=== PATIENT | male | born 1945 | race Caucasian/White ===

== ENCOUNTER 2017-03-18 08:10 | Inpatient (IN) ==
[2017-03-18 09:06] LABS: URINE MICRO REVIEW NEEDED? NO; URINE SOURCE CATH
[2017-03-18 09:13] LABS: BILIRUBIN URINE NEGATIVE (NEGATIVE); BLOOD URINE MODERATE (NEGATIVE); COLOR YELLOW; GLUCOSE URINE NEGATIVE (NEGATIVE); LEUKOCYTES URINE LARGE (NEGATIVE); NITRITE URINE NEGATIVE (NEGATIVE); PROTEIN URINE 70 mg/dL (NEGATIVE); TURBIDITY URINE HAZY (CLEAR); UR EPITHELIAL CELLS <10 /HPF (<10); URINE BACTERIA 4+ /HPF; URINE CULTURE NEEDED? YES; URINE WBC TNTC /HPF (<10); UROBILINOGEN URINE NORMAL (NORMAL)
[2017-03-18 09:19] LABS: BASO% 0.1 % (0.0-0.8); EOS# 0.09 X1000 (0.0-0.7); HEMATOCRIT 43.9 % (42.0-52.0); HEMOGLOBIN 15.3 g/dL (14.0-18.0); IMM GRAN# 0.02 X1000 (0.0-0.04); IMM GRAN% 0.2 % (0.0-0.5); LYMPH# 0.12 X1000 (1.2-3.4); LYMPH% 1.4 % (20.5-51.1); MANUAL DIFF NEEDED? NO; MCHC 34.9 g/dL (33-37); MCV 83.1 FL (81-99); MONO# 0.45 X1000 (0.11-0.59); MONO% 5.1 % (1.7-9.3); MPV 12.1 FL (7.4-10.4); NEUT% 92.2 % (42.2-75.2); PLT 120 X1000 (130-400); RBC 5.28 XMIL (4.7-6.1)
[2017-03-18 09:40] LABS: ALBUMIN 3.5 g/dL (3.5-5.0); CALCIUM 8.8 mg/dL (8.8-10.2); TOTAL BILIRUBIN 1.56 mg/dL (0.20-1.00); TOTAL PROTEIN 6.9 g/dL (6.3-8.3)
[2017-03-18 09:46] LABS: POTASSIUM 4.3 mmol/L (3.5-5.1)
[2017-03-18] MEDS ORDERED: ROCEPHIN 1 GM/NS 1 GM/50 ML IVPB IV ONE (10:34)
--- NOTE | 2017-03-18 11:09 | Diag Imaging Result Doc PS360 ---
CHEST-PORTABLE - 03/18/2017 INDICATION: SEPSIS TECHNIQUE: COMPARISON: 09/25/2016 FINDINGS: There is poor visualization of the left hemidiaphragm, possibly due to some left lower lobe atelectasis or infiltrate. The right lung appears grossly clear. Heart size is normal. No pneumothorax or pleural effusion. IMPRESSION: Probable left lower lobe infiltrate or atelectasis. Electronically signed by Shahid Allan 03/18/2017 11:07 AM
--- NOTE | 2017-03-18 12:32 | PROVIDER DOCUMENTATION ---
This chart was entered by Leland Driver Scribe, acting as scribe for Levi Mckeon MD. HPI-Fever - General Chief Complaint: Fever Stated Complaint: n/v Time Seen by Provider: 03/18/17 09:10 Source: patient, family Allergies/Adverse Reactions: Patient Allergies Allergy/AdvReac Type Severity Reaction Status Date / Time Penicillins Allergy Severe ANAPHYLAXIS Verified 03/18/17 08:50 Sulfa (Sulfonamide Allergy Severe ANAPHYLAXIS Verified 03/18/17 08:50 Antibiotics) [Sulfa(Sulfonamide Antibiotics)] codeine Allergy NAUSEA/VOMI Verified 03/18/17 08:50 TING Home Medications: Home Medication List Medication Instructions Recorded Confirmed Last Taken Type Allopurinol [Zyloprim] 100 mg PO QHS 09/11/12 03/18/17 03/17/17 History Aspirin 81 mg PO DAILY 09/11/12 03/18/17 03/17/17 History Ca Cmb No.1/Vit D3/B-6/FA/B12 1 each PO DAILY 09/11/12 03/18/17 03/17/17 History [Vitamin D3 1,000 Unit Tablet] Fexofenadine [Lian] 180 mg PO DAILY 09/11/12 03/18/17 03/17/17 History PRAVAstatin [Pravachol] 40 mg PO DAILY 09/11/12 03/18/17 03/17/17 History Bumetanide [Bumex] 1 mg PO DAILY 11/08/13 03/18/17 03/17/17 History Cyanocobalamin/FA/Pyridoxine 1 each PO QHS 11/08/13 03/18/17 03/17/17 History [Folbee Tablet] Ranitidine [Zantac] 150 mg PO BID 11/08/13 03/18/17 03/17/17 History Sennosides/Docusate Sodium 1 each PO QHS 11/08/13 03/18/17 03/17/17 History [Pericolace] Atenolol 25 mg PO BID #60 tablet 01/11/14 03/18/17 03/17/17 Rx Sodium Chloride 0.5 gm PO BID 10/16/14 03/18/17 03/17/17 History Clopidogrel Bisulfate [Plavix] 75 mg PO DAILY 06/11/0303/18/17 03/17/17 History Nitrofurantoin Monohyd/M-Cryst 100 mg PO BID 03/18/17 03/18/17 03/17/17 History [Macrobid 100 mg Capsule] - History of Present Illness-Fever Nature of Presenting Problem: patient is a 71 y/o M that presents to the ER with a 2 day history of fever/ chills, weakness. reports having a syncopal episode yesterday. He is on antibiotics for UTI. patient has suprapubic cath. History of CVA in past. Fever Severity/Quality: reports: greater than 100.5 F Onset/Duration: reports: gradual, 2 days ago Timing: reports: still present, constant Severity: reports: moderate Context: reports: indwelling butt (suprapubic cath) Recent Illness?: reports: none Cognitive Baseline: alert, oriented x3 Modifying Factors: improves with: nothing Associated Symptoms: reports: cough, fever/chills, genitourinary problems, syncope. denies: chest pain, diarrhea, EENT symptoms, nausea, shortness of breath, swelling/mass in abdomen, vomiting Similar Symptoms Previously?: Yes Recently seen or treated by another doctor?: Yes - Glascow Coma Score Best Eye Response (Salazar): (4) open spontaneously Best Verbal Response (Salazar): (4) confused conversation Best Motor Response (Salazar): (6) obeys commands Salazar Total: 14 Review of Systems - Adult - REVIEW OF SYSTEMS - ADULT ROS:: ROS per family Constitutional: reports: chills, fever Eyes: denies: decreased vision, blurred vision, double vision Ears, Nose, Mouth & Throat: reports: no symptoms reported Cardiovascular: denies: chest pain, palpitations, syncope Respiratory: reports: cough. denies: shortness of breath, wheezing Gastrointestinal: reports: abdominal pain. denies: diarrhea, nausea, vomiting Genitourinary: denies: dysuria, frequency, hesitency Musculoskeletal: reports: no symptoms reported Integumentary: reports: no symptoms reported Neurological: reports: syncope. denies: dizziness/vertigo, headache/migraines Psychiatric: reports: no symptoms reported Endocrine: reports: no symptoms reported Hematologic/Lymphatic: reports: no symptoms reported Allergic/Immunologic: reports: no symptoms reported All Other Systems: Reviewed and Negative Past History - Adult - PAST MEDICAL HISTORY-ADULT Review of Records: reports: Old Records Reviewed, Nursing Assessment Review, Medications Reviewed Cardiovascular: reports: CAD, HTN Respiratory: reports: COPD Gastrointestinal: reports: GERD Genitourinary: reports: kidney disease (chronic renal( stage Iv)), retention, stenosis/obstruction Musculoskeletal: reports: chronic pain Neurological: reports: CVA, stroke deficits (left sided), TIA Psychiatric: reports: anxiety Endocrine/Immune: reports: anemia - PRIOR SURGERIES/PROCEDURES Surgical/Procedure History: reports: indwelling device (suprapubic cath), other (TURP) - PRIOR HOSPITALIZATIONS Prior Hospitalizations: reports: for similar symptoms - IMMUNIZATION STATUS Childhood Immunizations: See Nurse Assessment Flu Vaccine: See Nurse Assessment - FAMILY HISTORY Family History: CAD over 55 yo - SOCIAL HISTORY Smoking: quit greater than 1 year, cigarettes Living Situation: family Physical Exam-General - PHYSICAL EXAM-ADULT Initial Vital Signs Reviewed: Yes - CONSTITUTIONAL General Appearance: no apparent distress, lethargic - EYES Eyes: PERRL/EOMI, pink conjunctivae - HEAD, EARS, NOSE, MOUTH & THROAT HENMT: normocephalic/atraumatic, moist mucous membranes, normal ENT inspection - NECK Neck: full range of motion, normal inspection - RESPIRATORY Respiratory: lungs clear, normal breath sounds, no respiratory distress, no accessory muscle use - CARDIOVASCULAR Cardiovascular: no gallop, no murmur, tachycardia - GASTROINTESTINAL (ABDOMEN) Abdominal Exam: normal bowel sounds, soft, no organomegaly, no pulsatile mass, tenderness (suprapubic), other (suprapubic cath) - MUSCULOSKELETAL Back Exam: no CVA tenderness, no vertebral tenderness Extremity: normal inspection, no pedal edema, normal capillary refill - SKIN Integumentary: normal turgor, warm/dry - NEUROLOGIC Neurologic: motor weakness (left sided previous cva). negative: aphasia, EOM palsy, facial droop - PSYCHIATRIC Psych/Mental Status: oriented x 3. negative: anxious, disheveled Progress - PLAN OF CARE/RESULTS Progress/Plan/Lab Results: Vital Signs - 8 hr 03/18/17 08:41 03/18/17 09:55 03/18/17 11:00 Temperature 100.7 F H Pulse Rate 103 H 88 88 Respiratory Rate 18 17 29 H Blood Pressure 129/73 120/57 121/63 O2 Sat by Pulse Oximetry 94 L 93 L 94 L Laboratory Results - last 24 hr 03/18/17 03/18/17 03/18/17 08:28 08:28 08:28 WBC 8.84 RBC 5.28 Hgb 15.3 Hct 43.9 MCV 83.1 MCH 29.0 MCHC 34.9 RDW Std Deviation 12.9 Plt Count 120 L MPV 12.1 H Immature Gran % (Auto) 0.2 Neut % (Auto) 92.2 H Lymph % (Auto) 1.4 L [place] % (Auto) 5.1 Eos % (Auto) 1.0 Baso % (Auto) 0.1 Immature Gran # (Auto) 0.02 Neut # (Auto) 8.15 H Lymph # (Auto) 0.12 L [place] # (Auto) 0.45 Eos # (Auto) 0.09 Baso # (Auto) 0.01 Sodium 124 L Potassium 4.3 Chloride 85 L Carbon Dioxide 23 L Anion Gap 16 BUN 25 H Creatinine 1.8 H Estimated GFR/1.73 m2 37 BUN/Creatinine Ratio 14 Glucose 96 Calculated Osmolality 254 Calcium 8.8 Total Bilirubin 1.56 H AST 38 H ALT 27 Alkaline Phosphatase 73 Total Protein 6.9 Albumin 3.5 Globulin 3.4 Albumin/Globulin Ratio 1.0 Plasma Lactate 1.4 Urine Source Urine Color Urine Turbidity Urine pH Ur Specific [place] Urine Protein Ur Glucose (Stick) Ur Ketones (Stick) Urine Blood Urine Nitrite Urine Bilirubin Urobilinogen Dipstick Urine Leukocytes Urine WBC (Auto) Urine RBC (Auto) U Epithel Cells (Auto) Urine Bacteria (Auto) 03/18/17 08:28 WBC RBC Hgb Hct MCV MCH MCHC RDW Std Deviation Plt Count MPV Immature Gran % (Auto) Neut % (Auto) Lymph % (Auto) [place] % (Auto) Eos % (Auto) Baso % (Auto) Immature Gran # (Auto) Neut # (Auto) Lymph # (Auto) [place] # (Auto) Eos # (Auto) Baso # (Auto) Sodium Potassium Chloride Carbon Dioxide Anion Gap BUN Creatinine Estimated GFR/1.73 m2 BUN/Creatinine Ratio Glucose Calculated Osmolality Calcium Total Bilirubin AST ALT Alkaline Phosphatase Total Protein Albumin Globulin Albumin/Globulin Ratio Plasma Lactate Urine Source CATH Urine Color YELLOW Urine Turbidity HAZY Urine pH 7.0 Ur Specific [place] 1.010 Urine Protein 70 A Ur Glucose (Stick) NEGATIVE Ur Ketones (Stick) NEGATIVE Urine Blood MODERATE A Urine Nitrite NEGATIVE Urine Bilirubin NEGATIVE Urobilinogen Dipstick NORMAL Urine Leukocytes LARGE A Urine WBC (Auto) TNTC A Urine RBC (Auto) 10-20 A U Epithel Cells (Auto) <10 Urine Bacteria (Auto) 4+ Orders Category Date Time Status Renal Diet Diet 03/18/17 11:31 Active CHEST-PORTABLE [RAD] Stat Exams 03/18/17 10:36 Completed CBC WITH ELECTRONIC DIFF [HEME] Stat Lab 03/18/17 08:28 Completed COMPREHENSIVE METABOLIC PANEL [CHEM] Stat Lab 03/18/17 08:28 Completed LACTATE, PLASMA [CHEM] Stat Lab 03/18/17 08:28 Completed URINALYSIS W/POSS RFLX CULT [URINALYSIS] Stat Lab 03/18/17 08:28 Completed URINE CULTURE [RM] Routine Lab 03/18/17 09:22 Received CefTRIAXONE 1 GM/NS [Rocephin 1 gm/Ns] Med 03/18/17 10:34 Discontinued 1 gm in 50 ml IV NOW Result Diagrams: 03/18/17 08:28 03/18/17 08:28 - XRAY 1 XRAY Study: Chest Impression: Abnormal XRAY Interpretation: probable LLL infiltrate or atelectasis - CONSULTS/PCP/HOSPITALIST Notification #1 *Consult/PCP/Hospitalist*: [place] with hospitalist Time Discussed: 12:05 Reason/Comments: accepted Consult Disposition: Will see in ED, Admit Departure - Departure Date of Disposition Decision: 03/18/17 Time of Disposition Decision: 12:05 DIAGNOSIS: Failure of outpatient treatment Fever Qualifiers: Fever type: unspecified Qualified Code(s): R50.9 - Fever, unspecified UTI (urinary tract infection) Qualifiers: Urinary tract infection type: acute cystitis Hematuria presence: with hematuria Qualified Code(s): N30.01 - Acute cystitis with hematuria Disposition: ADMITTED INPATIENT 09 Certified Medical Emergency: Emergent Condition: Stable Referrals and Follow-Ups: None,PCP [Primary Care Provider] - - Critical Care Note This patient required my direct & personal management of CC.: No This chart was documented by the indicated scribe, (Leland Driver, Scribe) and accurately reflects the services I performed and decisions made by me, Levi Mckeon MD, as attested by the provider's signature.
[2017-03-18 13:09] LABS: UR CREAT RANDOM 63.2 mg/dL (14-26)
--- NOTE | 2017-03-18 13:47 | Diag Imaging Result Doc PS360 ---
HEAD W/O CONTRAST - 03/18/2017 INDICATION: syncope/fall with head injury TECHNIQUE: A CT dose reduction protocol was used. COMPARISON: 09/25/2016 FINDINGS: There is a stable large area of encephalomalacia at the right frontal-parietal lobes with ex vacuo dilation of the lateral ventricle. The left cerebral hemisphere remains essentially normal. No intracranial mass or hemorrhage. The skull is intact. The sinuses, mastoids, and middle ears are clear. IMPRESSION: No acute disease or change from prior. Electronically signed by Shahid Allan 03/18/2017 1:45 PM
[2017-03-18] MEDS: NS 1,000 ML IV SCH (14:10)
--- NOTE | 2017-03-18 14:16 | Diag Imaging Result Doc PS360 ---
ABDOMEN FLAT/UPRIGHT - 03/18/2017 INDICATION: n/v TECHNIQUE: Two views COMPARISON: CT abdomen pelvis 07/17/2015 FINDINGS: There is mild rectal stool impaction, with a stool ball measuring 6.8 x 9.1 cm. There is mild diffuse constipation. No bowel obstruction or free air. IMPRESSION: Mild constipation with rectal stool impaction. Electronically signed by Shahid Allan 03/18/2017 2:13 PM
[2017-03-18 15:03] LABS: IRON SATURATION 6 %; TIBC 242 ug/dL; TOTAL IRON 14 ug/dL (53-167); UNBOUND IRON 228 ug/dL (112-346)
[2017-03-18 15:10] LABS: HDL 43 mg/dL (35-55); LDL 30 mg/dL; TRIGLYCERIDES 90 mg/dL (39-160); VLDL 18 mg/dL
[2017-03-18 15:12] LABS: FREE T4 1.83 ng/dL (0.93-1.70)
--- NOTE | 2017-03-18 15:12 | HISTORY AND PHYSICAL ---
CHIEF COMPLAINT: Fever, chills, syncope. HISTORY OF PRESENT ILLNESS: Mr. 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 Since that time, he has been managed with a suprapubic catheter, he has it exchanged every month and is followed by Urology here in [place]. He has also had multiple urinary tract infections, most recently a few months back with Pseudomonas. He comes in today with diaphoresis, chills bordering on rigor and a syncopal episode which happened yesterday. The patient has a difficult time giving history secondary to his permanent dysphagia, but his at the bedside is able to tell us that he has been mildly nauseous for the past 2 days since he has started Macrobid for UTI. Yesterday he threw up and he started to have a fever and chills, this continued into the morning and he was brought here to the ER. In the ER, he had labs done and he was noted to be hyponatremic with a significant urinary tract infection, also with mildly elevated liver function tests. Blood cultures have been started, and he has been started on antibiotics. PAST MEDICAL HISTORY: 1. CVA with left-sided hemiplegia. 2. Neurogenic bladder, status post suprapubic catheter placement. 3. Hypertension. 4. CAD. 5. CKD 4. 6. Coronary artery disease. 7. Hyperlipidemia. 8. History of nephrolithiasis. 9. Gout. 10. BPH. SURGICAL HISTORY: He has had a suprapubic catheter placed. SOCIAL HISTORY: He has a remote history of smoking. He quit in 2002. There is no alcohol or drug use or current tobacco use. FAMILY HISTORY: Significant for CAD. ALLERGIES: Penicillin, sulfa and codeine. HOME MEDICATIONS: Allopurinol 100 mg p.o. at bedtime. Aspirin 81 mg daily. Atenolol 25 mg b.i.d. Bumex 1 mg daily. Multivitamin daily. Plavix 75 mg daily. Folbee vitamin daily. Lian 180 mg daily. Nitrofurantoin 100 mg b.i.d. Pravachol 40 mg p.o. daily. Zantac 150 mg p.o. b.i.d. Senokot 1 at night. Sodium chloride 0.5 g p.o. b.i.d. REVIEW OF SYSTEMS: A 14 point review of systems obtained and found to be negative with the exception of the HPI. PHYSICAL EXAMINATION: VITAL SIGNS: Blood pressure is 122/60, heart rate 51, respiratory rate 18, O2 saturation 97% on room air. Temperature is 100.5 degrees. GENERAL: This is a chronically ill-appearing, 71-year-old male, lying in hospital bed in no acute distress. NEUROLOGIC: The patient has left-sided hemiplegia and dysphagia. 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 He is oriented. HEENT: Head is atraumatic and normocephalic. His pupils are equal, round, and reactive to light. Oral mucosa is a bit dry. Trachea is midline. There is no JVD. CHEST: Diminished at the bases, but otherwise clear to auscultation bilaterally. CARDIOVASCULAR: Regular rate and rhythm. S1-S2 is noted. No murmurs. GI: Soft, nondistended, nontender. Bowel sounds are positive. He does have a suprapubic catheter which is clean, dry, and intact. EXTREMITIES: Diminished pulses, but palpable bilaterally. DIAGNOSTIC DATA/IMAGING: Head CT does not show anything acute. Chest x-ray is negative. Abdomen x-ray shows mild constipation with rectal stool impaction. WBC 8.84, hemoglobin 15.3, hematocrit 43.9, platelet count 120,000. Sodium 124, potassium 4.3, chloride 85, CO2 23, anion gap 16, BUN 25, creatinine 1.8. Glucose 96, calcium 8.8, bilirubin 1.56, AST 38, ALT 27, alkaline phosphatase 73. Protein 6.9. UA shows significant urinary tract infection. Osmolarity of urine is 314. Urine creatinine 63.2. Urine sodium 41. ASSESSMENT/PLAN: 1. Urinary tract infection. Failed outpatient treatment/possible sepsis: Given his previous history of pseudomonal urinary tract infection, will cover him with aztreonam as he is allergic to penicillin. 2. Syncope, likely secondary to urinary tract infection, possible volume depletion: We are going to add light IV fluids, head computed tomography does not show anything acute. Continue neurologic checks and monitor telemetry. 3. Hyponatremia: Given his history of nausea, vomiting, it is likely to be hypovolemic, so will give him some IV fluids. Given the fact that he is on Bumex, urine studies will be of no assistance. We will continue to trend his sodium. 4. Chronic kidney disease 4: Chronic and stable, continue his home medications as well as light IV fluids. 5. Elevated liver function tests: Patient does not have any overt abdominal pain. He is mildly nauseous. We will withhold any hepatotoxic agents and check a complete metabolic panel in the morning. If no improvement, consider ultrasound of abdomen. 6. Stool impaction: We will continue his Senokot and add cathartics as necessary. 7. Deep venous thrombosis prophylaxis with Lovenox. Further recommendations to follow. Dictated by GEMINI Boss for Bunny Cerna MD cc: GEMINI Boss MD
[2017-03-18] MEDS: LOVENOX SUBQ SCH (15:45)
[2017-03-18] MEDS: AZACTAM 1 GM in NS 50 ML IV SCH ×2 (15:47→21:57)
[2017-03-18 17:54] LABS: CALCIUM 8.9 mg/dL (8.8-10.2); POTASSIUM 4.8 mmol/L (3.5-5.1)
[2017-03-18] MEDS: ZANTAC PO SCH (21:56)
[2017-03-18] MEDS: TENORMIN PO SCH (21:56)
[2017-03-18] MEDS: FOLTX PO SCH (21:56)
[2017-03-19] MEDS: LOVENOX SUBQ SCH ×2 (03:04→14:00)
[2017-03-19] MEDS: AZACTAM 1 GM in NS 50 ML IV SCH ×3 (05:25→21:50)
[2017-03-19] MEDS: NS 1,000 ML IV SCH ×2 (05:25→17:03)
[2017-03-19 06:51] LABS: HEMATOCRIT 41.8 % (42.0-52.0); MCHC 33.5 g/dL (33-37); MCV 86.5 FL (81-99); MPV 12.3 FL (7.4-10.4); RBC 4.83 XMIL (4.7-6.1)
[2017-03-19 07:29] LABS: AGAP 14; ALBUMIN 3.1 g/dL (3.5-5.0); ALKALINE PHOSPHATASE 63 U/L (32-122); BUN 27 mg/dL (8-22); CALCIUM 8.5 mg/dL (8.8-10.2); CHLORIDE 94 mmol/L (98-107); COSMO 262; DIRECT BILIRUBIN < 0.20 mg/dL (0.00-0.20); GOT 44 U/L (10-34); GPT 29 U/L (10-44); POTASSIUM 4.5 mmol/L (3.5-5.1); SODIUM 128 mmol/L (136-145); TCO2 20 mmol/L (25-35); TOTAL BILIRUBIN 0.47 mg/dL (0.20-1.00); TOTAL PROTEIN 6.1 g/dL (6.3-8.3)
[2017-03-19] MEDS ORDERED: VITAMIN D PO SCH (09:00)
[2017-03-19] MEDS: ALLEGRA PO SCH (09:04)
[2017-03-19] MEDS: TENORMIN PO SCH ×2 (09:05→21:51)
[2017-03-19] MEDS: ASPIRIN PO SCH (09:07)
[2017-03-19] MEDS: ZANTAC PO SCH ×2 (09:07→21:51)
[2017-03-19] MEDS: PLAVIX PO SCH (09:07)
--- NOTE | 2017-03-19 15:09 | PROGRESS NOTE ---
DATE: 03/19/2017 SUBJECTIVE: Today, Mr. Demarco refers to be doing okay. He said he has a very good bowel movement just awhile ago with the nurses. He is not feeling any more weak. He feels a whole lot stronger. OBJECTIVE: Vital Signs: Blood pressure is 167/81, pulse of 73, respirations 18, temperature is 98.0. General: On exam, Mr. Demarco is a 71-year-old male. He was in bed. He did not seems to be in any distress. HEENT: Mucosa is pink and moist. Anicteric. Acyanotic. Neck: Supple. Chest: Good air entry bilaterally. No crepitations. No rhonchi. Cardiovascular: Regular rate and rhythm. Abdomen: Soft, nontender. There is a suprapubic catheter in place. Extremities: No pedal edema. 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 He is slightly dysarthric and has a dense left-sided hemiparesis. LABORATORY DATA: WBC is 7.40, hemoglobin is 14.0, platelet count of 116. Chemistries: Sodium is 128, potassium 4.5, chloride is 94, bicarbonate is 20. Creatinine is 1.9. Patient normally runs around anywhere between 1.8 to 2.3. So far, the urine culture has gram-negative rods. CURRENT MEDICATIONS: 1. Aspirin 81 mg daily. 2. Atenolol 25 mg b.i.d. 3. Aztreonam 1 g q. 8 hours. 4. Cholecalciferol. 5. Plavix 75 mg daily. 6. Lovenox. 7. Ranitidine. 8. Normal saline. ASSESSMENT: 1. Gram-negative russel urinary tract infection. Failed outpatient therapy. Will be pending the ID and sensitivity on this. 2. Syncope, likely secondary to volume depletion. Patient is getting gentle diuresis. 3. Hyponatremia, improving. 4. Acute on chronic kidney disease. Patient is gently getting diuresis. Will be monitoring very closely his hydration status to prevent any over hydration. 5. Constipation. Patient has just had a bowel movement. We will continue with the symptomatic management. 6. History of cerebrovascular accident with left side hemiparesis noted. PLAN: So, in general I think Mr. Demarco is doing a whole lot better. Has had bowel movement and is tolerating his diet. We are still pending the ID and sensitivity on the GNR in the urine to tweak his medications. cc: Bunny Cerna MD
[2017-03-19] MEDS: FOLTX PO SCH (21:50)
[2017-03-20] MEDS ORDERED: BLISTEX MEDICATED BERRY LIP BALM TOP PRN (02:42)
[2017-03-20] MEDS: NS 1,000 ML IV SCH ×2 (02:58→06:07)
[2017-03-20] MEDS: AZACTAM 1 GM in NS 50 ML IV SCH (06:07)
[2017-03-20] MEDS: LOVENOX SUBQ SCH (06:07)
[2017-03-20 06:40] LABS: HEMATOCRIT 39.8 % (42.0-52.0); MCH 29.1 PG (27-31); MCHC 32.7 g/dL (33-37); MPV 12.2 FL (7.4-10.4); RBC 4.47 XMIL (4.7-6.1)
[2017-03-20 06:59] LABS: CALCIUM 8.4 mg/dL (8.8-10.2); POTASSIUM 4.3 mmol/L (3.5-5.1)
[2017-03-20] MEDS: ALLEGRA PO SCH (09:49)
[2017-03-20] MEDS: ZANTAC PO SCH (09:50)
[2017-03-20] MEDS: PLAVIX PO SCH (09:50)
[2017-03-20] MEDS: ASPIRIN PO SCH (09:50)
[2017-03-20] MEDS: TENORMIN PO SCH (09:50)
[2017-03-20 15:30] VITALS: BP 150/77
--- NOTE | 2017-03-20 17:50 | DISCHARGE SUMMARY ---
ADMISSION DATE: 03/18/2017 DISCHARGE DATE: 03/20/2017 DISPOSITION: Home. FOLLOWUP: Will be with patient's PCP, and Dr. Camargo. CONSULTATION DURING THIS ADMISSION: None. IMAGING STUDIES OF SIGNIFICANCE: A CT scan of the head was done which showed no acute disease. ADMISSION DIAGNOSES: 1. Urinary tract infection, failed outpatient therapy. 2. Syncope. 3. Hyponatremia. 4. Chronic kidney disease. DIAGNOSES AT THE TIME OF DISCHARGE: 1. Altered mental status on presentation due to toxic metabolic encephalopathy from urinary tract infection. 2. Pseudomonas-induced urinary tract infection. 3. Hyponatremia, improving. 4. Chronic kidney disease, stage 3B. 5. Constipation, improved. 6. History of cerebrovascular accident with left-sided hemiparesis. 7. Vitamin D deficiency. DISCHARGE MEDICATIONS: 1. Allopurinol 100 mg daily. 2. Lian. 3. Pravastatin 40 mg daily. 4. Multivitamin. 5. Ranitidine 150 b.i.d. 6. Atenolol 25 mg b.i.d. 7. Levofloxacin 500 mg daily. 8. Cholecalciferol 1000 units daily. PRESENTING COMPLAINT: Fever, chills, syncope. HISTORY OF PRESENTING COMPLAINT: Mr. Demarco is a 71-year-old male with indwelling suprapubic catheter due to BPH and urine retention. Came into the emergency department because of fever, chills and syncope with some altered mentation. The patient was evaluated, was thought to be having UTI. Patient has already been started on Nitro-Bid for UTI 2 days prior to coming. It seems like he was not getting any better so was admitted for further medical care. HOSPITAL COURSE: The patient did pretty well during the hospital course. He was started on IV antibiotics to which he responded very appropriately. No more fever, no more chills. His urine culture came back to be Pseudomonas aeruginosa which is sensitive to levofloxacin. We therefore discontinued the aztreonam and put the patient on p.o. levofloxacin and he is ready to be discharged. Patient will follow up with Dr. Camargo, and he is going to go home in a very stable condition. Patient already has home health and very good social family support. At the time of discharge, there are not any pending labs or imaging studies. TIME SPENT FOR DISCHARGE: Thirty-seven minutes. cc: Bunny Cerna MD
[2017-03-21] MEDS ORDERED: LEVAQUIN PO SCH (09:00)
[2017-03-21] MEDS ORDERED: VITAMIN D PO SCH (09:00)
== END 2017-03-20 18:35 | disposition home health service (06) ==
LOC: ED 08:10 → 4N 12:25
PROVIDERS: ATTEND Internal Medicine